=== PATIENT | female | born 2000 | race Caucasian/White ===

== ENCOUNTER 2020-01-23 13:28 | Emergency (ER) | payer MEDICAID ==
[~2020-01-23] VITALS: Ht 142.2 cm; Wt 38.6 kg
[2020-01-23 13:40] VITALS: BP 111/68; Ht 142.2 cm; Wt 38.6 kg
[2020-01-23 15:58] LABS: BASOPHIL % 0.3 % (0-2); PLATELET COUNT 256 x10^3mcL (130-400)
[2020-01-23 16:01] LABS: RED CELL DISTRIBUTION WIDTH 14.7 % (11.5-14.5)
[2020-01-23 16:25] LABS: CARBON DIOXIDE 31.9 mmol/L (21-32); CHLORIDE SERUM 103 mmol/L (98-107); CREATININE SERUM 0.7 mg/dL (0.6-1.0); GFR1 > 60 mL/min; GLUCOSE SERUM 92 mg/dL (74-106); SODIUM SERUM 139 mmol/L (136-145)
[2020-01-23 16:30] LABS: ALBUMIN 4.4 g/dL (3.4-5.0); ALKALINE PHOSPHATASE 68 U/L (46-116); ALT/SGPT 16 U/L (14-59); AST/SGOT 13 U/L (15-37); BILIRUBIN TOTAL 0.2 mg/dL (0.20-1.00); TOTAL PROTEIN, SERUM 8.1 g/dL (6.4-8.2)
== END 2020-01-23 17:40 | disposition home or self-care (01) ==
LOC: ED 13:28
PROVIDERS: Specialist
DX: N83.8 Other noninflammatory disorders of ovary, fallopian tube and broad ligament (principal); N39.0 Urinary tract infection, site not specified

== ENCOUNTER 2020-02-12 13:09 | Emergency (ER) | payer MEDICAID ==
[~2020-02-12] VITALS: Ht 142.2 cm; Wt 38.6 kg
[2020-02-12 13:15] VITALS: Ht 142.2 cm; Wt 38.6 kg
[2020-02-12 13:48] LABS: BASOPHIL % 0.1 % (0-2); PLATELET COUNT 311 x10^3mcL (130-400); RED CELL DISTRIBUTION WIDTH 14.4 % (11.5-14.5)
[2020-02-12 14:18] LABS: CARBON DIOXIDE 25.6 mmol/L (21-32); CHLORIDE SERUM 104 mmol/L (98-107); CREATININE SERUM 0.7 mg/dL (0.6-1.0); GFR1 > 60 mL/min; GLUCOSE SERUM 112 mg/dL (74-106); POTASSIUM SERUM 3.8 mmol/L (3.5-5.1); SODIUM SERUM 141 mmol/L (136-145)
[2020-02-12 14:23] LABS: ALBUMIN 4.3 g/dL (3.4-5.0); ALKALINE PHOSPHATASE 48 U/L (46-116); ALT/SGPT 17 U/L (14-59); AST/SGOT 18 U/L (15-37); BILIRUBIN TOTAL 0.4 mg/dL (0.20-1.00); LIPASE 254 IU/L (73-393); TOTAL PROTEIN, SERUM 7.9 g/dL (6.4-8.2)
[2020-02-12 15:51] VITALS: BP 99/56
== END 2020-02-12 15:51 | disposition home or self-care (01) ==
LOC: ED 13:09
PROVIDERS: Emergency Medicine
DX: G89.29 Other chronic pain (principal); R10.2 Pelvic and perineal pain; N93.9 Abnormal uterine and vaginal bleeding, unspecified; R19.7 Diarrhea, unspecified; R11.0 Nausea; E78.5 Hyperlipidemia, unspecified; Z87.42 Personal history of other diseases of the female genital tract
CPT/HCPCS: J1885; J2270; J2405; J3010; J7030